=== PATIENT | male | born 1985 | race Caucasian/White ===

== ENCOUNTER 2022-05-04 10:52 | Day surgery (SDC) | payer OTHER ==
[~2022-05-04] VITALS: Ht 175.3 cm; Wt 74.8 kg
[2022-05-04 15:58] VITALS: BP 130/90
== END 2022-05-04 14:55 | disposition home or self-care (01) | DRG 694 ==
LOC: ORM 10:52
PROVIDERS: ATTEND Urology
PROC: 0TF3XZZ Fragmentation in Right Kidney Pelvis, External Approach (ICD-10-PCS; principal; 2022-05-04)
DX: N20.0 Calculus of kidney (principal)
CPT/HCPCS: J1956